=== PATIENT | female | born 1950 | race Two or more races ===

== ENCOUNTER 2022-01-27 06:44 | Day surgery (SDC) | payer OTHER ==
[~2022-01-27] VITALS: Ht 162.6 cm; Wt 91.6 kg
[~2022-01-27 06:44] MED LIST: FOLIC ACID0.4 MG; GLIPIZIDE XL2.5 MG PO; GLUMETZA500 MG PO; LEVOTHYROXINE100 MC1 PO; LIPITOR40 M1 PO; LOTREL 10-40 M1 EACH PO; ORAPRED ODT10 MG PO
== END 2022-01-27 17:55 | disposition home or self-care (01) ==
LOC: CIR.AMB 06:44
PROVIDERS: ATTEND Orthopaedic Surgery Hand Surgery
DX: M13.841 Other specified arthritis, right hand (principal); G56.03 Carpal tunnel syndrome, bilateral upper limbs; I10 Essential (primary) hypertension; E11.9 Type 2 diabetes mellitus without complications; Z79.84 Long term (current) use of oral hypoglycemic drugs; E07.9 Disorder of thyroid, unspecified; E03.9 Hypothyroidism, unspecified; Z88.6 Allergy status to analgesic agent; Z20.822 Contact with and (suspected) exposure to COVID-19
CPT/HCPCS: 26531 ×4; L8699